=== PATIENT | female | born 1975 | race American Indian/Alaskan Native ===

== ENCOUNTER 2019-08-06 08:26 | Emergency (ER) | payer SELFPAY ==
[2019-08-06] MEDS ORDERED: NACL 0.9% 1000 ML 1,000 ML IV ONE (09:04)
[2019-08-06 09:07] LABS: Basophils # (Auto) 0.1 K/mm3 (0.0-0.1); Basophils % (Auto) 1.4 % (0.0-1.8); Eosinophils # (Auto) 0.1 K/mm3 (0.0-0.4); Eosinophils % (Auto) 0.6 % (0.0-4.3); Hematocrit 43.5 % (30.3-42.9); Hemoglobin 14.5 gm/dl (10.1-14.3); Lymphocytes % (Auto) 19.4 % (13.4-35.0); Mean Corpuscular HGB Conc 33 % (30-34); Mean Corpuscular Volume 94 fl (79-97); Monocytes # (Auto) 0.9 K/mm3 (0.0-0.8); Monocytes % (Auto) 9.3 % (0.0-7.3); Platelet Count 387 K/mm3 (140-440); Red Blood Count 4.61 M/mm3 (3.65-5.03); Red Cell Distribution Width 14.1 % (13.2-15.2)
--- NOTE | 2019-08-06 09:10 | Emergency Department Report ---
HPI - General Chief Complaint: Medical Clearance Time Seen by Provider: 08/06/19 09:04 - HPI HPI: 44 yo AA female comes to ER with reports of trembling for 3 days and weight loss of 15 pounds in one month. She also endorses a headache and diarrhea for 1 day. Pt has HIV and is followed by [facility]. Her viral load was undetectable as of 07-14-19. CD4 on that day was 385. She last saw them on 07-28. She has had HIV since ; contracted through unprotected sex. She has also had SLE since 2015. Pt states she does not know which of these disease processes are making her ill. Her HIV MD put her on an appetite stimulant but she states it does not work. She also stopped her prednisone 5mg bid after her 07-14 appointment. Pt has no support system. She works. She is tearful on exam. No SI. Hx of depression but can not afford care for it. On admit to ER. VSS. No fever. No tachycardia. No hypotension. She is ambulatory. ED Past Medical Hx - Past Medical History Previous Medical History?: Yes Hx Hypertension: No Hx CVA: No Hx Heart Attack/AMI: No Hx Congestive Heart Failure: No Hx Diabetes: No Hx Deep Vein Thrombosis: No Hx Pulmonary Embolism: No Hx GERD: No Hx Liver Disease: No Hx Renal Disease: No Hx of Cancer: No Hx Sickle Cell Disease: No Hx Arthritis: No Hx Headaches / Migraines: No Hx Seizures: No Hx Kidney Stones: No Hx Psychiatric Treatment: No Hx Asthma: No Hx COPD: No Hx Tuberculosis: No Hx Dementia: No Hx HIV: No Additional medical history: LUPUS/HIV/depression - Surgical History Past Surgical History?: Yes Additional Surgical History: foot surgery - Family History Family history: no significant - Social History Smoking Status: Current Every Day Smoker Substance Use Type: Alcohol (occ) ED Review of Systems ROS: Stated complaint: LUPUS/HEADACHE/TRIMBLING/PAIN Other details as noted in HPI Comment: All other systems reviewed and negative Physical Exam - Physical Exam Vital Signs: Vital Signs 08/06/19 08:31 Temperature 99.6 F Pulse Rate 105 H Respiratory 20 Rate Blood Pressure 167/95 O2 Sat by Pulse 100 Oximetry Physical Exam: tearful and crying on exam no SI sad; no support system; does work alert/oriented intention tremor r arm; not noted on left but pt states sometimes it is on left too perrl no focal def s1s2 lungs cta abd snt no cva tenderness no edema/jvd ED Course Vital Signs 08/06/19 08:31 Temperature 99.6 F Pulse Rate 105 H Respiratory 20 Rate Blood Pressure 167/95 O2 Sat by Pulse 100 Oximetry - Reevaluation(s) Reevaluation #1: 08/06/19 10:13 hemolysis of chemistry lab to be redrawn U/A, preg and xray pending Reevaluation #2: 08/06/19 10:24 Home meds triumeq for HIV Pericatin for appetite stimulant ED Medical Decision Making - Lab Data Result diagrams: 08/06/19 08:43 08/06/19 10:21 - Radiology Data Radiology results: report reviewed, image reviewed - Medical Decision Making Labs 08/06/19 08/06/19 08/06/19 08:43 08:43 08:43 WBC 10.2 RBC 4.61 Hgb 14.5 H Hct 43.5 H MCV 94 MCH 31 MCHC 33 RDW 14.1 Plt Count 387 Lymph % (Auto) 19.4 [place] % (Auto) 9.3 H Eos % (Auto) 0.6 Baso % (Auto) 1.4 Lymph # 2.0 [place] # 0.9 H Eos # 0.1 Baso # 0.1 Seg Neutrophils % 69.3 Seg Neutrophils # 7.1 ESR Sodium TNR Potassium TNR Chloride TNR Carbon Dioxide TNR Anion Gap TNR BUN TNR Creatinine TNR Estimated GFR TNR BUN/Creatinine Ratio TNR Glucose TNR Calcium TNR Total Bilirubin TNR AST TNR ALT TNR Alkaline Phosphatase TNR Total Protein TNR Albumin TNR Albumin/Globulin Ratio TNR TSH 0.442 HCG, Qual Urine Color Urine Turbidity Urine pH Ur Specific [place] Urine Protein Urine Glucose (UA) Urine Ketones Urine Blood Urine Nitrite Urine Bilirubin Urine Urobilinogen Ur Leukocyte Esterase Urine WBC (Auto) Urine RBC (Auto) U Epithel Cells (Auto) Urine Bacteria (Auto) Urine Mucus Urine HCG, Qual 08/06/19 08/06/19 08/06/19 08:43 08:43 10:21 WBC RBC Hgb Hct MCV MCH MCHC RDW Plt Count Lymph % (Auto) [place] % (Auto) Eos % (Auto) Baso % (Auto) Lymph # [place] # Eos # Baso # Seg Neutrophils % Seg Neutrophils # ESR 14 Sodium 139 Potassium 4.3 Chloride 106.4 Carbon Dioxide 20 L Anion Gap 17 BUN 10 Creatinine 0.6 L Estimated GFR > 60 BUN/Creatinine Ratio 17 Glucose 89 Calcium 8.7 Total Bilirubin AST ALT Alkaline Phosphatase Total Protein Albumin Albumin/Globulin Ratio TSH HCG, Qual Negative Urine Color Urine Turbidity Urine pH Ur Specific [place] Urine Protein Urine Glucose (UA) Urine Ketones Urine Blood Urine Nitrite Urine Bilirubin Urine Urobilinogen Ur Leukocyte Esterase Urine WBC (Auto) Urine RBC (Auto) U Epithel Cells (Auto) Urine Bacteria (Auto) Urine Mucus Urine HCG, Qual 08/06/19 12:03 WBC RBC Hgb Hct MCV MCH MCHC RDW Plt Count Lymph % (Auto) [place] % (Auto) Eos % (Auto) Baso % (Auto) Lymph # [place] # Eos # Baso # Seg Neutrophils % Seg Neutrophils # ESR Sodium Potassium Chloride Carbon Dioxide Anion Gap BUN Creatinine Estimated GFR BUN/Creatinine Ratio Glucose Calcium Total Bilirubin AST ALT Alkaline Phosphatase Total Protein Albumin Albumin/Globulin Ratio TSH HCG, Qual Urine Color Straw Urine Turbidity Clear Urine pH 6.0 Ur Specific [place] 1.009 Urine Protein <15 mg/dl Urine Glucose (UA) Neg Urine Ketones Neg Urine Blood Sm Urine Nitrite Neg Urine Bilirubin Neg Urine Urobilinogen < 2.0 Ur Leukocyte Esterase Neg Urine WBC (Auto) 1.0 Urine RBC (Auto) 1.0 U Epithel Cells (Auto) 5.0 Urine Bacteria (Auto) 1+ Urine Mucus Few Urine HCG, Qual Negative Vital Signs 08/06/19 08/06/19 08/06/19 08:31 11:08 11:09 Temperature 99.6 F 98.1 F Pulse Rate 105 H 72 Respiratory 20 20 20 Rate Blood Pressure 167/95 Blood Pressure 145/77 [Left] O2 Sat by Pulse 100 100 100 Oximetry LABS NOTED UA NOTED XRAY NOTED LONG DISCUSSION WITH PT ABOUT HER SYMPTOMS AND RELATION TO HIV MEDS. SHE VERBALIZES UNDERSTANDING OF THE NEED TO FOLLOW UP WITH HER MD AND A RHEUMATOID MD. THERE WAS NO ACUTE FINDING DURING TODAYS WORK UP REQUIRING EMERGENT CARE/ADMIT. PT BEING DC HOME WITH FOLLOW UP WITH HER ID MD REFERRALS PROVIDED FOR LOCAL CARE FROM PCP. Critical care attestation.: If time is entered above; I have spent that time in minutes in the direct care of this critically ill patient, excluding procedure time. ED Disposition Clinical Impression: History of HIV infection, Weight loss Disposition: DC-01 TO HOME OR SELFCARE Is pt being admited?: No Does the pt Need Aspirin: No Condition: Stable Additional Instructions: I RECOMMEND YOU CALL YOUR ID MD AND TALK WITH THEM ABOUT YOUR WEIGHT LOSS AND THE POSSIBLE CAUSE BIENG YOUR PERICATIN. ALL LABS NORMAL TODAY XRAY CHEST NORMAL WBC NORMAL SED RATE NORMAL TSH NORMAL DIET AND ACTIVITY TOLERATED STAY WELL HYDRATED ENSURE THREE TIMES PER DAY TO KEEP CALORIES IN Referrals: [facility] [Outside] - 3-5 Days Time of Disposition: 13:23 ED Physical Exam - General Limitations: No Limitations General appearance: alert - Head Head exam: Present: normocephalic - Eye Eye exam: Present: PERRL - ENT ENT exam: Present: mucous membranes moist - Neck Neck exam: Present: normal inspection - Respiratory Respiratory exam: Present: normal lung sounds bilaterally - Cardiovascular Cardiovascular Exam: Present: regular rate, other (hr 90 on exam) - GI/Abdominal GI/Abdominal exam: Present: soft - Rectal Rectal exam: Present: deferred - Extremities Exam Extremities exam: Present: normal inspection - Back Exam Back exam: Present: normal inspection - Neurological Exam Neurological exam: Present: alert, oriented X3, CN II-XII intact - Psychiatric Psychiatric exam: Present: normal affect, normal mood - Skin Skin exam: Present: warm, dry, intact
[2019-08-06 10:17] LABS: BUN/Creatinine Ratio TNR; Blood Urea Nitrogen TNR mg/dL (7-17); Calcium TNR mg/dL (8.4-10.2)
[2019-08-06 10:18] LABS: Alanine Aminotransferase TNR units/L (7-56); Albumin TNR g/dL (3.9-5); Hemolysis Index TNR
[2019-08-06 10:52] LABS: BUN/Creatinine Ratio 17; Blood Urea Nitrogen 10 mg/dL (7-17); Calcium 8.7 mg/dL (8.4-10.2); Hemolysis Index 31
[2019-08-06 12:27] LABS: Bacteria,Urine 1+ /HPF (Negative); Bilirubin,Urine NEG (Negative); Blood,Urine SM (Negative); Color,Urine Straw (Yellow); Mucus,Urine FEW /HPF; Protein,Urine <15 mg/dL mg/dL (Negative); Urobilinogen,Urine < 2.0 mg/dL (<2.0)
[2019-08-06 12:29] LABS: HCG Qualitative,Urine Negative (Negative)
--- NOTE | 2019-08-06 13:00 | XRay Report ---
CHEST 2 VIEWS INDICATION: fever. COMPARISON: None. FINDINGS: Support devices: None. Heart: Within normal limits. Pulmonary vasculature: Normal. Lungs/pleura: The lungs are normally expanded and clear. No airspace disease or pleural effusion. No pneumothorax. Additional findings: None. IMPRESSION: Normal chest Signer Name: Nayan Barriga MD Signed: 08/06/2019 12:56 PM Workstation Name: [id number]
[2019-08-06 15:08] VITALS: BP 127/78
== END 2019-08-06 15:09 | disposition home or self-care (01) ==
LOC: ED 08:26
DX: B20 Human immunodeficiency virus [HIV] disease (principal); R63.4 Abnormal weight loss; Z68.20 Body mass index [BMI] 20.0-20.9, adult; M32.9 Systemic lupus erythematosus, unspecified; F32.9 Major depressive disorder, single episode, unspecified; F17.200 Nicotine dependence, unspecified, uncomplicated; R19.7 Diarrhea, unspecified
CPT/HCPCS: 36415; 71046; 80048; 80053; 81001; 81025; 84443; 84703; 85025; 85652; 96360; 96361; 99284; J7030